=== PATIENT | female | born 1950 | race Caucasian/White ===

== ENCOUNTER → 2023-07-04 | Outpatient (CLI) | payer MEDICARE, OTHER, SELFPAY ==
--- NOTE | 2023-07-04 09:25 | RAD_ITS ---
STUDY: BARIUM ENEMA. REASON FOR EXAM: Female, 73 years old. POST RIKKI COLOGUARD FAILED COLONSCOPY FLUOROSCOPY TIME (if supplied): ( 54 seconds. ) minutes/seconds. 19 images were obtained. TECHNIQUE: Career Technical Counselor views were obtained. Following this, barium was introduced retrograde through the rectum. The entire colon was opacified. COMPARISON: None. FINDINGS: No evidence of a retrograde or antegrade obstruction to the flow of contrast. Sigmoid diverticula. No evidence of obstruction. Tiny diverticula is seen in the proximal portion of the transverse colon. The sigmoid colon is redundant. RAD/Barium Enema w/Air Contrast IMPRESSION: Diverticulum is seen in the sigmoid colon as well as in the proximal transverse colon. No evidence of obstruction. No filling defect is seen. Electronically Signed: Juan Swan MD at 10:43 EST ,
--- OUTSIDE RECORDS SUMMARY | 2023-07-04 09:50 | XMS RPT_ITS | CCD ---
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 Name Role Phone Lázaro Gamboa PA-C Primary Care Provider [phone] Lázaro GAMBOA Primary Care Unavailable Lázaro GAMBOA Primary Care Unavailable Lázaro GAMBOA Referring Unavailable GAMBOALázaro Primary Care Unavailable Lázaro GAMBOA Attending Unavailable Lázaro GAMBOA Primary Care Unavailable RAFY MARTÍNEZ Attending Unavailable Lázaro GAMBOA Primary Care Unavailable ANNA, ALEXANDRA Referring Unavailable GAMBOALázaro Primary Care Unavailable GAMBOALázaro Referring Unavailable ANNA, ALEXANDRA Attending Unavailable GAMBOA M PRETTY Primary Care Unavailable GAMBOA, Lázaro OLSEN Referring Unavailable GAMBOA, Lázaro OLSEN Primary Care Unavailable Lázaro GAMBOA Attending Unavailable Allergies Allergy Classification Reported Allergen(s) Allergy Type Date of Onset Reaction(s) Facility (10 sources) Adhesive Tape; Translations: [ADHESIVE TAPE (ROSINS)] Propensity to adverse reactions 0 [facility] Work Phone: (10 sources) atorvastatin; Translations: [ATORVASTATIN CALCIUM] Drug Allergy 2 Intolerance [facility] Work Phone: (10 sources) HYLAN G-F 20; Translations: [HYLAN G-F 20] Drug Allergy 0 [facility] (10 sources) Niacin; Translations: [NIACIN] Drug Allergy 7 Itching [facility] (5 sources) Penicillins; Translations: [PENICILLINS] Propensity to adverse reactions 6 [facility] (10 sources) rofecoxib; Translations: [ROFECOXIB] Drug Allergy 6 [facility] Work Phone: (10 sources) Sulfonamides (Antibiotic); Translations: [SULFA (SULFONAMIDE ANTIBIOTICS)] Propensity to adverse reactions 6 GI Upset [facility] (5 sources) Penicillins Propensity to adverse reactions 6 [facility] Medications Completed/Discontinued Medications Medication Drug Class(es) Dates Sig (Normalized) Sig (Original) allopurinol 300 mg oral tablet (10 sources) Xanthine Oxidase Inhibitor Start: 04-09-2021 End: 04-12-2022 take 1 tablet by mouth once daily allopurinol (ZYLOPRIM) 300 mg tablet Indications: Idiopathic chronic gout of foot without tophus, unspecified laterality Take 1 tablet by mouth once daily. 90 tablet 3 04/12/2022 Active Problems Active Problems Problem Classification Problem Date Documented Da te Episodic/Chronic Chronic kidney disease (10 sources) Chronic kidney disease stage 3; Translations: [CKD (chronic kidney disease) stage 3, GFR 30-59 ml/min] Onset: 8 05-04-2018 Chronic Chronic kidney disease (1 source) Chronic kidney disease; Translations: [Hypertensive kidney disease with stage 3b chronic kidney disease (HCC)] Onset: Disorders of lipid metabolism (14 sources) Mixed hyperlipidemia; Translations: [Mixed hyperlipidemia] Onset: 7 03-04-2009 Chronic Esophageal disorders (14 sources) Gastroesophageal reflux disease without esophagitis; Translations: [Gastro-esophageal reflux disease without esophagitis] Onset: 1 04-09-2021 Chronic Essential hypertension (14 sources) Benign essential hypertension; Translations: [Essential (primary) hypertension] Onset: 9 04-08-2009 Chronic Gout and other crystal arthropathies (15 sources) Gout; Translations: [Gout, unspecified] Onset: 1 06-01-2021 Chronic Hypertension with complications and secondary hypertension (10 sources) Chronic kidney disease stage 3 due to hypertension; Translations: [Hypertensive chronic kidney disease with stage 1 through stage 4 chronic kidney disease, or unspecified chronic kidney disease] Onset: 1 04-07-2021 Chronic Nutritional deficiencies (1 source) Vitamin D deficiency; Translations: [Vitamin D deficiency, unspecified] Chronic Osteoarthritis (9 sources) Osteoarthritis; Translations: [Osteoarthrosis, unspecified whether generalized or localized, lower leg] Onset: 9 06-01-2021 Chronic Other aftercare (1 source) Drug therapy finding; Translations: [Other terminal superintendent (current) drug therapy] Episodic Other aftercare (2 sources) Other mcc (current) drug therapy; Translations: [Current use of proton pump inhibitor] Onset: 3 Episodic Other aftercare (1 source) prison (current) use of non-steroidal anti-inflammatories (NSAID); Translations: [NSAID long-term use] Onset: 4 Episodic Other congenital anomalies (9 sources) Congenital pes planus; Translations: [Congenital pes planus, unspecified foot] Onset: 6 11-23-2005 Chronic Other diseases of bladder and urethra (3 sources) Overactive bladder; Translations: [Overactive bladder] Chronic Other diseases of bladder and urethra (1 source) Overactive bladder; Translations: [OAB (overactive bladder)] Onset: 3 Chronic Other diseases of kidney and ureters (1 source) Renal impairment; Translations: [Disorder of kidney and ureter, unspecified] Episodic Other gastrointestinal disorders (1 source) Other fecal abnormalities; Translations: [Positive colorectal cancer screening using Cologuard test] Onset: 4 Episodic Other hereditary and degenerative nervous system conditions (1 source) Other specified forms of tremor; Translations: [Intention tremor] Onset: 3 Chronic Other inflammatory condition of skin (1 source) Psoriasis vulgaris; Translations: [Psoriasis vulgaris] Onset: 3 Chronic Other nutritional; endocrine; and metabolic disorders (10 sources) Body mass index 40+ - severely obese; Translations: [Morbid (severe) obesity due to excess calories] Onset: 8 04-07-2021 Chronic Other screening for suspected conditions (not mental disorders or infectious disease) (2 sources) Patient encounter status; Translations: [Encounter for screening mammogram for malignant neoplasm of breast] Onset: 3 Episodic Residual codes; unclassified (9 sources) H/O Malignant melanoma; Translations: [Other specified postprocedural states] 04-07-2021 Episodic Unclassified (1 source) Visit for monitoring Rituxan therapy; Translations: [Visit for monitoring Rituxan therapy] Onset: Past or Other Problems Problem Classification Problem Date Documented Date Episodic/Chronic Biliary tract disease (9 sources) Calculus of gallbladder with cholecystitis; Translations: [Calculus of gallbladder with chronic cholecystitis without obstruction] Onset: 11-22-2007 11-22-2007 Episodic Diabetes mellitus without complication (20 sources) Impaired fasting glycemia; Translations: [Impaired fasting glucose] Onset: 07-10-2009 07-10-2009 Episodic Malaise and fatigue (1 source) Other fatigue; Translations: [Fatigue, unspecified type] Onset: 10-27-2022 Episodic Melanomas of skin (1 source) Personal history of malignant melanoma of skin; Translations: [History of melanoma excision] Onset: 04-07-2021 Episodic Other aftercare (1 source) Encounter for therapeutic drug level monitoring; Translations: [Visit for monitoring Rituxan therapy] Onset: 01-25-2023 Episodic Other connective tissue disease (9 sources) Tibialis tendinitis; Translations: [Posterior tibial tendinitis, unspecified leg] Onset: 11-23-2005 11-23-2005 Episodic Other connective tissue disease (9 sources) Pain in limb; Translations: [Pain in unspecified limb] Onset: 02-03-2009 02-03-2009 Episodic Other connective tissue disease (9 sources) Calcaneal spur; Translations: [Calcaneal spur, unspecified foot] Onset: 03-17-2010 03-17-2010 Episodic Residual codes; unclassified (12 sources) Other specified health status; Translations: [Other drug allergy] Onset: 04-09-2021 04-09-2021 Episodic Residual codes; unclassified (1 source) Other specified postprocedural states; Translations: [History of melanoma excision] Onset: 04-07-2021 Episodic Spondylosis; intervertebral disc disorders; other back problems (12 sources) Spinal stenosis of lumbar region; Translations: [Spinal stenosis, lumbar region without neurogenic claudication] Onset: 04-08-2009 04-08-2009 Episodic Results Test Name Value Interpretation Reference Range Facil ity Vital Signs Date Time Vital Sign Value Performing Clinician Jumana juarez 04-12-2022 09:10-0500 Body weight 119.75 kg MORTEZA Gamboa PA-C Work Phone: [facility] 04-12-2022 09:10-0500 Diastolic blood pressure 72 mm[Hg] NA Gamboa PA-C Work Phone: [facility] 04-12-2022 09:10-0500 Heart rate 76 /min NA Gamboa PA-C Work Phone: [facility] 04-12-2022 09:10-0500 Respiratory rate 16 /min NA Gamboa PA-C Work Phone: [facility] 04-12-2022 09:10-0500 SaO2% (BldA) [Mass fraction] 96 % NA Gamboa PA-C Work Phone: [facility] 04-12-2022 09:10-0500 Systolic blood pressure 128 mm[Hg] NA Gamboa PA-C Work Phone: [facility] 10-08-2021 08:59-0400 Body weight 121.11 kg NA Gamboa PA-C Work Phone: [facility] 10-08-2021 08:59-0400 Diastolic blood pressure 84 mm[Hg] NA Gamboa PA-C Work Phone: [facility] 10-08-2021 08:59-0400 Heart rate 84 /min NA Gamboa PA-C Work Phone: [facility] 10-08-2021 08:59-0400 Respiratory rate 16 /min NA Gamboa PA-C Work Phone: [facility] 10-08-2021 08:59-0400 SaO2% (BldA) [Mass fraction] 96 % NA Gamboa PA-C Work Phone: [facility] 10-08-2021 08:59-0400 Systolic blood pressure 128 mm[Hg] NA Gamboa PA-C Work Phone: [facility] Encounters Encounter Date Encounter Type Care Provider Facility Start: 06-30-2023 End: 06-30-2023 ambulatory RAFY MARTÍNEZ Facility:[facility] Start: 06-22-2023 End: 06-23-2023 ambulatory Lázaro GAMBOA Facility:[facility] Start: 05-23-2023 End: 05-23-2023 ambulatory Lázaro PRETTYCHIVO CORTESON Facility:[facility] Start: 05-06-2023 End: 05-06-2023 ambulatory Lázaro PRETTYCHIVO GAMBOA Facility:[facility] Start: 03-22-2023 End: 03-22-2023 ambulatory Lázaro PRETTYCHIVO GAMBOA Facility:[facility] Start: 01-25-2023 End: 01-26-2023 ambulatory Lázaro PRETTY GAMBOA Facility:[facility] Start: 10-27-2022 End: 10-28-2022 ambulatory Lázaro PRETTYCHIVO GAMBOA Facility:[facility] Start: 10-22-2022 End: 10-22-2022 ambulatory Lázaro GAMBOA Facility:[facility] Start: 08-22-2022 Refill Lázaro hull PA-C Work Phone: [facility] [place] Procedures Date Procedure Procedure Detail Performing Clinician Start: 05-19-2022 Mammography MORTEZA Gamboa PA-C Work Phone: Start: 05-15-2021 Mammography Jodie Met fpc [employer]PER[employer] Work Phone: Start: 04-04-2021 Adult depression scr eening assessment Jodie Bree [employer] Work Phone: Start: 05-01-2013 Colonoscopy Jodie Met fpc [employer] Work Phone: Plan of Treatment Date Care Activity Detail Author Start: 10-01-2026 LIPID SCREEN LIPID SCREEN [facility] Start: 04-14-2026 LIPID SCREEN LIPID SCREEN [facility] Start: 04-07-2025 DIABETES SCREEN DIABETES SCREEN [facility] Start: 10-01-2024 DIABETES SCREEN DIABETES SCREEN [facility] Start: 04-14-2024 DIABETES SCREEN DIABETES SCREEN [facility] Start: 05-19-2023 Mammography MAMMOGRAM [facility] Start: 05-01-2023 Colonoscopy COLONOSCOPY [facility] Start: 05-01-2023 COLORECTAL CANCER SCREENING COLORECTAL CANCER SCREENING [facility] Start: 04-12-2023 ANNUAL PCP TEAM DUST COLLECTOR ATTENDANT LU DISEASE VISIT ANNUAL PCP TEAM CHRONIC DISEASE VISIT [facility] Start: 04-12-2023 BP CONTROLLED (<130/80) BP CONTROLLE D (<130/80) [facility] Start: 04-12-2023 Urine microalbumin profile DTA P,TDAP,TD (2 - Td or Tdap) [facility] Immunizations Immunization Date Immunization Notes Care Provider Leonel doe 03-02-2022 COVID-19 booster vaccine, age 12+ yr, bivalent (PFIZER-BIONTECH) NA Gamboa PA-C Work Phone: [facility] 03-02-2022 influenza, high dose seasonal, preservative-free NA Gamboa PA-C Work Phone: [facility] 09-16-2021 COVID-19 vaccine, ag e 12+ yr (PFIZER-BIONTECH - PURPLE TOP) NA Gamboa PA-C Work Phone: [facility] 02-17-2021 influenza, high-dose , quadrivalent vaccine (FLUZONE HIGH DOSE QUADRIVALENT) Jodie Bree [employer]PER[employer] Work Phone: [facility] 08-21-2020 COVID-19 vaccine, ag e 12+ yr (PFIZER-BIONTECH - PURPLE TOP) Jodie Mansfield [employer]PER[employer] Work Phone: [facility] 07-31-2020 COVID-19 vaccine, ag e 12+ yr (PFIZER-BIONTECH - PURPLE TOP) Jodie Mansfield [employer]OSS P[employer]ER.[employer]PER[employer] Work Phone: [facility] 02-25-2020 zoster vaccine recombinant Jodie Mansfield [employer]ER.[employer]PER[employer] Work Phone: [facility] 02-13-2020 influenza, high dose seasonal, preservative-free Jodie Bree SP[employer]ER.[employer]PER[employer] Work Phone: [facility] 12-06-2019 zoster vaccine recombinant Jodie Bree [employer]ER.[employer] Work Phone: [facility] 02-18-2019 influenza, high dose seasonal, preservative-free Jodie Bree [employer]ER.[employer]PER[employer] Work Phone: [facility] 02-19-2018 influenza, high dose seasonal, preservative-free Jodie Mansfield SP[employer]ER.[employer]PER[employer] Work Phone: [facility] 02-14-2017 influenza, high dose seasonal, preservative-free Jodie Mansfield SP[employer]ER.[employer] Work Phone: [facility] Work Phone: 04-12-2016 pneumococcal conjuga te vaccine, 13 valent Jodie Bree [employer] Work Phone: [facility] Work Phone: 02-14-2016 influenza, high dose seasonal, preservative-free Jodie Mansfield SP[employer] M[employer]ER.[facility] Work Phone: [facility] Work Phone: 03-09-2015 influenza, high dose seasonal, preservative-free Jodie Mansfield SP[employer].[facility] Work Phone: [facility] 03-21-2014 influenza, seasonal, injectable Jodie Bree SP[employer] P[employer]ER.[employer]PER[employer] Work Phone: [facility] Work Phone: 03-17-2013 influenza virus vacc ine, unspecified formulation Jodie Mansfield [employer].[facility] Work Phone: [facility] 02-22-2013 pneumococcal polysaccharide vaccine, 23 valent Jodie Bree [employer]ER[employer] Work Phone: [facility] 03-25-2012 influenza virus vacc ine, unspecified formulation Jodie Mansfield [employer] Work Phone: [facility] Work Phone: 03-06-2011 influenza virus vacc ine, unspecified formulation Jodie Bree [employer] Work Phone: [facility] Work Phone: 04-11-2010 influenza virus vacc ine, unspecified formulation Jodie Mansfield [employer] Work Phone: [facility] Work Phone: 03-08-2009 influenza virus vacc ine, unspecified formulation Jodie Mansfield [employer] Work Phone: [facility] Work Phone: 03-08-2009 tetanus toxoid, redu marta diphtheria toxoid, and acellular pertussis vaccine, adsorbed Jodie Bree [employer] Work Phone: [facility] Work Phone: 01-14-2009 zoster vaccine, live Jodie M etcalf [employer] Work Phone: [facility] Work Phone: Payers Date Payer Category Payer Medicare [id number] 2020 Unknown [employer]IC[employer] SUPPLE[place] [id number] 2020-Present [phone] [id number] [place] [address] Indemnity [id number] 2020 Unknown [employer] [employer] [employer]IC[employer] SUPPLEMENT [id number] 2020-Present [phone] [address] [place] [address] Indemnity [id number] 2012 Medicare MEDICARE MEDICAR E A AND B [id number] 2012-Present [phone] [place] [address] Medicare [id number] 2012 Medicare MEDICARE MEDICAR E A AND B [id number] 2012-Present [phone] [place] [address] Medicare [id number] 2012 Medicare [id number] Social History Date Type Detail Facility Start: 01-21-2011 Tobacco smoking stat us [facility] Never smoked tobacco [facility] Start: 04-09-2021 End: 04-12-2022 Alcohol intake Current non-drinker of alcohol (finding) [facility] Start: 04-04-2021 History SDOH Alcohol Frequency 1 [facility] Start: 04-04-2021 History SDOH Social Connections Phone 5 [facility] Start: 04-04-2021 History SDOH Social Connections Get Together 4 [facility] Start: 04-04-2021 History SDOH Social Connections Yazidi 3 [facility] Start: 04-04-2021 History SDOH Social Connections Meetings 2 [facility] Start: 04-04-2021 History SDOH Physica l Activity MPS 6 [facility] Start: 1950 Sex Assigned At Not on file [facility] Start: 01-21-2011 Tobacco use and exposure Smoke less tobacco non-user [facility] Work Phone: Start: 04-02-2022 End: 04-12-2022 Exposure to SARS-CoV-2 (event) Not sure [facility] Clinical Notes 03-04-2009 to 06-22-2023 Telephone Encounter - Diaz Medellin LPN - 08/23/2022 9:44 AM EDTTelephone Encounter - Sherley Nugent MA - 04/23/2022 9:08 AM BEAU Gamboa PA-C - 04/12/2022 9:00 AM EST Note Date & Type Note Facility 06-22-2023 Note HNO ID: [id number] Author: ALEXANDRA CASTILLO PA-C Service: ? Author Type: Physician Loan Documents Closer Type: Progress Notes Filed: 06/27/2023 17:08 Note Text: golytelyHISTORY AND PHYSICAL Yojana Leon Ivelisse 1950 REFERRING PHYSICIAN: Lázaro Gamboa PA-C CHIEF COMPLAINT: Consult HPI: The patient is a 73 year old female referred for endoscopy due to positive Cologuard test. Yojana notes no colon complaints. Patient denies any change in bowel habits, weight changes, blood in stools, black tarry stools or abdominal pain. NOTES family history of colon polyps-brother. The patient NOTES GERD, is maintained on a PPI long-term for symptoms. Notes history of NSAID use. Yojana has undergone prior endoscopy. Last colonoscopy 05/01/[address] Felix under conscious sedation, no concerning findings at that time. Patient denies chest pain, shortness of breath or recent hospitalizations. Denies problems with sedation in the past. PAST MEDICAL HISTORY Diagnosis Date Benign hypertensive heart disease without heart failure Esophageal reflux Melanoma (HCC) Back. Chest. 2 different sites/ times. Excision only. Follows annually wiht Dr. Thomas. Overactive bladder Positive colorectal cancer screening using Cologuard test 05/11/2023 Pure hypercholesterolemia PAST SURGICAL HISTORY Procedure Laterality Date ARTHRP KNE CONDYLEANDPLATU MEDIALANDLAT COMPARTMENTS 06/08/10 right ARTHRP KNE CONDYLEANDPLATU MEDIALANDLAT COMPARTMENTS 07/06/2011 left COLONOSCOPY 02/11/2003 COLONOSCOPY FLX DX W/COLLJ SPEC WHEN PFRMD 05/01/2013 Colonoscopy ESOPHAGOGASTRODUODENOSCOPY TRANSORAL DIAGNOSTIC 05/02/2013 EGD LAPAROSCOPY SURG CHOLECYSTECTOMY 11/23/2007 Hemorrhagic Cholecystitis LIG/TRNSXJ FLP TUBE ABDL/VAG APPR UNI/BI PAST SURGICAL HISTORY OF MELANOMA REMOVAL PAST SURGICAL HISTORY OF KNEE SURGERY right - arthroscopy X 2 TOTAL ABDOMINAL HYSTERECT W/WO RMVL TUBE OVARY 05/31/1991 Current Outpatient Medications Medication Sig lisinopril (ZESTRIL) 40 mg tablet Take 1 tablet by mouth once daily. rosuvastatin (CRESTOR) 5 mg tablet Take 1 tablet by mouth daily at bedtime. fluticasone propionate (FLOVENT DISKUS) 250 mcg/actuation inhaler Inhale 1 Puff as instructed once daily. metoprolol tartrate, short acting, (LOPRESSOR) 50 mg tablet Take 0.5 tablets by mouth twice daily. allopurinol (ZYLOPRIM) 300 mg tablet Take 1 tablet by mouth once daily. fenofibrate nanocrystallized (TRICOR) 145 mg tablet Take 1 tablet by mouth once daily. lansoprazole (PREVACID) 30 mg capsule Take 1 capsule by mouth once daily. oxybutynin XL (DITROPAN XL) 5 mg 24 hr tablet Take 1 tablet by mouth once daily. nitrofurantoin monohydrate and macrocrystal (MACROBID) 100 mg capsule Take 1 capsule by mouth as needed. take one capsule after coitus as needed. Azelastine 0.15 % (205.5 mcg) spry Use in each nostril once daily. levocetirizine dihydrochloride(XYZAL 5 MG TAB) Take 5 mg by mouth once daily. FLONASE 50 MCG/ACTUATION NASAL SPRAY AEROSOL ONCE AT NIGHT empagliflozin (JARDIANCE) 10 mg tablet Take 1 tablet by mouth once daily. Take 1 tablet once daily in the morning betamethasone dipropionate, augmented (DIPROLENE) 0.05 % cream Apply to the affected areas on the scalp, arms and legs twice a day for two weeks on. then take 2 weeks off before repeating as needed for flares (Patient not taking: Reported on 06/22/2023) triamcinolone acetonide (KENALOG) 0.1 % cream Apply a thin layer to the abdomen and under the breasts once a day at night for 2 weeks. Hold for 2 weeks before repeating for any flares. (Patient not taking: Reported on 06/22/2023) ibuprofen(ADVIL 200 MG TAB) three pills in the morning and one pill at night and then as needed No current facility-administered medications for this visit. ALLERGIES: Adhesive Tape (Rosins), Lipitor [Atorvastatin Calcium], Niacin, Penicillins, Sulfa (Sulfonamide Antibiotics), Synvisc [Hylan G-F 20], and Vioxx [Rofecoxib] PERSONAL HISTORY: Social History Tobacco Use Smoking status: Never Smokeless tobacco: Never Vaping Use Vaping Use: Never used Substance Use Topics Alcohol use: Not Currently Drug use: Never FAMILY HISTORY: FAMILY HISTORY Problem Relation Age of Onset Cancer Mother CERVICAL Hypertension Mother Cancer Father LUNG Hypertension Brother Diabetes Brother Diabetes Maternal Grandmother No Known Problems Maternal Grandfather No Known Problems Paternal Grandmother No Known Problems Paternal Grandfather No Known Problems Son No Known Problems Son Cancer Maternal Aunt ovarian REVIEW OF SYMPTOMS: The review of systems data was entered by the nurse and reviewed by nv Nursing Notes: Shayna Christie LPN 06/22/2023 3:54 PM Signed REVIEW OF SYSTEMS: General: The patient denies fatigue, denies weight loss, denies weight gain, denies feeling hot, and denies feelings of cold. Eyes: The patient denies glaucoma, denies eye injury/surge (more content not included)... [facility] 05-23-2023 Note HNO ID: [id number] Author: Magdalene Baker Mammo Tech Service: ? Author Type: Forger Helper Type: Progress Notes Filed: 05/23/2023 1:49 PM Note Text: Radiology Service Progress Note PATIENT NAME: Yojana Johnson DATE OF SERVICE: May 23, 2023 TIME: 1:30 PM PATIENT IDENTITY VERIFICATION COMPLETED USING TWO (2) IDENTIFIERS: Name and Date of confirmed by patient verbally. FALL SCREENING: Has the patient had 2 falls in the last year or 1 fall with injury or currently using an Ambulatory Assistive Device (Walker, Cane, Wheelchair, Crutches, etc.)? No PATIENT GENDER DATA: Female. status: : No status: NO. PATIENT RELEVANT IMPLANT DATA REVIEWED: Not Applicable RADIOLOGY DEPARTMENT: Mammography PERIPHERAL IV DATA: Not applicable SIGNED BY: Pietro Dominguez May 23, 2023 1:30 PM [facility] 05-06-2023 Note HNO ID: [id number] Author: Lázaro Gamboa PA-C Service: ? Author Type: Physician Loan Documents Closer Type: Progress Notes Filed: 05/07/2023 7:32 AM Note Text: 73 year old female with c/o here for 6 month medication follow up Notes chronic nasal congestion over last few months, allergy to leaf mold and trees Not dripping, uses simple saline and sometimes green/ bloody chunks. On [place] and Essential hypertension, benign (primary encounter diagnosis) Hypertensive kidney disease with stage 3b chronic kidney disease (hcc) Current meds: Lisinopril-HCTZ 20-25mg daily Patient is compliant with meds Yes Monitors bp at home: No. If yes, readings: Denies side effects: No. Chest pain: No. Dyspnea: No. Edema: No. Palpitations: No. Syncope: No. Headache: No. Dizziness: No. Last 3 Encounter BP Readings: Date: BP: 05/06/2023 130/72 03/22/2023 151/82 10/22/2022 126/72 Last 2 Encounter Wt Readings: Date: Wt: 05/06/2023 116.6 kg (257 lb) 03/22/2023 117 kg (258 lb) Component Latest Ref Rng AND Units 10/27/2022 01/25/2023 WBC 3.70 - 11.00 k/uL 5.72 5.85 RBC 3.90 - 5.20 m/uL 4.60 4.49 Hemoglobin 11.5 - 15.5 g/dL 13.7 13.6 Hematocrit 36.0 - 46.0 % 43.3 42.1 MCV 80.0 - 100.0 fL 94.1 93.8 MCH 26.0 - 34.0 pg 29.8 30.3 MCHC 30.5 - 36.0 g/dL 31.6 32.3 RDW-CV 11.5 - 15.0 % 14.2 14.5 Platelet Count 150 - 400 k/uL 203 216 MPV 9.0 - 12.7 fL 12.2 12.0 Neut% % 58.9 Abs Neut (ANC) 1.45 - 7.50 k/uL 3.45 Lymph% % 29.1 Abs Lymph 1.00 - 4.00 k/uL 1.70 Guthrie% % 6.2 Abs Guthrie <0.87 k/uL 0.36 Eosin% % 4.8 Abs Eosin <0.46 k/uL 0.28 Baso% % 0.7 Abs Baso <0.11 k/uL 0.04 Immature Gran % % 0.3 IMMATURE GRANS (ABS) <0.10 k/uL <0.03 NRBC /100 WBC 0.0 Absolute nRBC <0.01 k/uL <0.01 <0.01 DTYPE Auto Protein, Total 6.3 - 8.0 g/dL 7.3 Albumin 3.9 - 4.9 g/dL 4.5 Calcium 8.5 - 10.2 mg/dL 10.1 10.1 Bilirubin, Total 0.2 - 1.3 mg/dL 0.4 Alkaline Phosphatase 34 - 123 U/L 42 AST 13 - 35 U/L 25 ALT 7 - 38 U/L 20 Glucose 74 - 99 mg/dL 108 (H) 94 BUN 7 - 21 mg/dL 48 (H) 34 (H) Creatinine 0.58 - 0.96 mg/dL 1.46 (H) 1.40 (H) Sodium 136 - 144 mmol/L 143 141 Potassium 3.7 - 5.1 mmol/L 4.3 4.7 Chloride 97 - 105 mmol/L 107 (H) 107 (H) CO2 22 - 30 mmol/L 22 22 Anion Gap 9 - 18 mmol/L 14 12 eGFR >=60 mL/min/1.73mA? 38 (L) 39 (L) Mixed hyperlipidemia Statin intolerance Current medication Fenofibrate 145mg daily Taking medication consistently No Observing low cholesterol high fiber diet No Muscle aches No Stomach complaints/ diarrhea No Last 2 Lipids: Component Latest Ref Rng AND Units 10/01/2021 10/27/2022 Cholesterol, Total <200 mg/dL 216 (H) 189 Triglyceride <150 mg/dL 311 (H) 243 (H) HDL Cholesterol >39 mg/dL 36 (L) 35 (L) Non HDL Cholesterol <130 mg/dL 180 (H) 154 (H) Fasting Time hrs 12 14 VLDL Cholesterol <30 mg/dL 62 (H) 49 (H) TC:HDL Ratio <5.10 6.00 (H) 5.40 (H) LDL Cholesterol <100 mg/dL 118 (H) 105 (H) LDL:HDL Ratio <2.54 3.28 (H) 3.00 (H) The 10-year ASCVD risk score (Obdulia HOOVER, et al., 2019) is: 27.8% Values used to calculate the score: Age: 73 years Sex: Female Is Non- : No Diabetic: No Tobacco smoker: No Systolic Blood Pressure: 151 mmHg Is BP treated: Yes HDL Cholesterol: 35 mg/dL Total Cholesterol: 189 mg/dL Prediabetes Hemoglobin A1C (%) Date Value 10/27/2022 5.9 04/07/2022 5.9 04/14/2021 5.9 01/09/2019 5.7 ) Gerd without esophagitis Current medication: Lansoprazole 30 mg daily 30 minutes AC. Current symptoms: none. Last Mg level if on PPI chronically: 04/07/2022 1.7. Heartburn is controlled: Yes. Dysphagia: No. Bloody or black stools: No. Bowel changes: No. Last EGD and/or colonoscopy: Last EGD and/or colonoscopy: Both in 2012. EGD: mild erythema GEJ otherwise normal esophagus, small hiatal hernia, single small sessile poly excised, mild gastric antral erythema Colonoscopy: non-bleeding internal and external hemorrhoids, sigmoid diverticulosis, otherwise WNL Path: Cardia polyp, biopsy - Focal foveolar hyperplasia. - Adenomatous epithelium not identified. Gout, unspecified cause, unspecified chronicity, unspecified site Spinal stenosis of lumbar region with neurogenic claudication Current medications: Allopurinol 300 g daily Aches and pains with age, all over for years. Takes 5 ibuprofen a day which seems to help. Describes it as a dull ache throughout the day and reports exercise helps some. Still able to perform ADLs and whatever she needs to do History of melanoma excision Last visit red silvery scaled spots on arms and legs Went to [facility] had creams, two injections tremfeya 100mg/mL weekly x 2 from samples and rash resolved. Betamethasone dipropionate augmented 0.05% sparingly affected areas twice a day after 2 weeks and then 2 weeks off. Asthma Flovent diskus 250mcg/actuation 1 puff daily from allergy doctor. Uses routinely. No issues wi (more content not included)... [facility] 03-22-2023 Note HNO ID: [id number] Author: Adelaida Nina PA-C Service: ? Author Type: Physician Loan Documents Closer Type: Progress Notes Filed: 03/22/2023 12:09 PM Note Text: This note was created using [employer]. Subjective Yojana Johnson is a 73 year old female. HPI Patient presents with sinus pressure and congestion over the past week. She states she had allergy symptoms for about a month leading up to this past week and then her sinus pressure worsened and drainage thicker. She states she is also had a cough but thinks it is from a tickle in her throat. Denies chest pain or shortness of breath. No vomiting or diarrhea. She has tried Mucinex [id number] which seemed to help with the congestion however upset her stomach so did not continue it. She does take Flonase daily as well as Xyzal for allergies. She also had a leftover prescription for Macrobid so took that for 5 days. Review of Systems Constitutional: Negative. HENT: Positive for congestion, ear pain, postnasal drip, rhinorrhea, sinus pressure and sinus pain. Negative for sore throat. Respiratory: Positive for cough. Negative for chest tightness, shortness of breath and wheezing. Cardiovascular: Negative. Gastrointestinal: Negative. Genitourinary: Negative. Musculoskeletal: Negative. Skin: Negative. All other systems reviewed and are negative. PAST MEDICAL HISTORY Diagnosis Date Benign hypertensive heart disease without heart failure Esophageal reflux Melanoma (HCC) Back. Chest. 2 different sites/ times. Excision only. Follows annually wiht Dr. Thomas. Overactive bladder Pure hypercholesterolemia Current Outpatient Medications Medication Sig Dispense Refill betamethasone dipropionate, augmented (DIPROLENE) 0.05 % cream Apply to the affected areas on the scalp, arms and legs twice a day for two weeks on. then take 2 weeks off before repeating as needed for flares doxycycline monohydrate (MONODOX) 100 mg capsule Take 1 capsule twice a day for 14 days with food triamcinolone acetonide (KENALOG) 0.1 % cream Apply a thin layer to the abdomen and under the breasts once a day at night for 2 weeks. Hold for 2 weeks before repeating for any flares. fluticasone propionate (FLOVENT DISKUS) 250 mcg/actuation inhaler Inhale 1 Puff as instructed once daily. metoprolol tartrate, short acting, (LOPRESSOR) 50 mg tablet Take 0.5 tablets by mouth twice daily. 90 tablet 3 allopurinol (ZYLOPRIM) 300 mg tablet Take 1 tablet by mouth once daily. 90 tablet 3 lisinopril-hydroCHLOROthiazide (ZESTORETIC) 20-25 mg per tablet Take 1 tablet by mouth once daily. 90 tablet 3 fenofibrate nanocrystallized (TRICOR) 145 mg tablet Take 1 tablet by mouth once daily. 90 tablet 3 lansoprazole (PREVACID) 30 mg capsule Take 1 capsule by mouth once daily. 90 capsule 3 oxybutynin XL (DITROPAN XL) 5 mg 24 hr tablet Take 1 tablet by mouth once daily. 90 tablet 3 nitrofurantoin monohydrate and macrocrystal (MACROBID) 100 mg capsule Take 1 capsule by mouth as needed. take one capsule after coitus as needed. 30 capsule 2 Azelastine 0.15 % (205.5 mcg) spry ibuprofen(ADVIL 200 MG TAB) three pills in the morning and one pill at night and then as needed 0 levocetirizine dihydrochloride(XYZAL 5 MG TAB) 0 FLONASE 50 MCG/ACTUATION NASAL SPRAY AEROSOL ONCE AT NIGHT 0 doxycycline (VIBRA-TABS) 100 mg tablet Take 1 tablet by mouth two times a day for 7 days. 14 tablet 0 predniSONE (DELTASONE) 20 mg tablet Take 2 tablets by mouth once daily for 5 days. 10 tablet 0 No current facility-administered medications for this visit. PAST SURGICAL HISTORY Procedure Laterality Date ARTHRP KNE CONDYLEANDPLATU MEDIALANDLAT COMPARTMENTS 06/08/10 right ARTHRP KNE CONDYLEANDPLATU MEDIALANDLAT COMPARTMENTS 07/06/2011 left COLONOSCOPY 02/11/2003 COLONOSCOPY FLX DX W/COLLJ SPEC WHEN PFRMD 05/01/2013 Colonoscopy ESOPHAGOGASTRODUODENOSCOPY TRANSORAL DIAGNOSTIC 05/02/2013 EGD LAPAROSCOPY SURG CHOLECYSTECTOMY 11/23/2007 Hemorrhagic Cholecystitis LIG/TRNSXJ FLP TUBE ABDL/VAG APPR UNI/BI PAST SURGICAL HISTORY OF MELANOMA REMOVAL PAST SURGICAL HISTORY OF KNEE SURGERY right - arthroscopy X 2 TOTAL ABDOMINAL HYSTERECT W/WO RMVL TUBE OVARY 05/31/1991 FAMILY HISTORY Problem Relation Age of Onset Cancer Mother CERVICAL Hypertension Mother Cancer Father LUNG Hypertension Brother Diabetes Brother Diabetes Maternal Grandmother Cancer Maternal Aunt ovarian Social History Tobacco Use Smoking status: Never Smokeless tobacco: Never Vaping Use Vaping Use: Never used Substance Use Topics Alcohol use: No Drug use: No Objective BP 151/82 Pulse 66 Temp 36.5 ?C (97.7 ?F) Resp 20 Wt 117 kg (258 lb) SpO2 98% BMI 39.81 kg/m? Physical Exam Vitals reviewed. Constitutional: Appearance: Normal appearance. HENT: Head: Normocephalic and atraumatic. Cardiovascular: Rate and Rhythm: Normal rate and regular rhythm. H (more content not included)... [facility] 10-22-2022 Note HNO ID: [id number] Author: Lázaro Gamboa PA-C Service: ? Author Type: Physician Loan Documents Closer Type: Progress Notes Filed: 10/22/2022 12:23 PM Note Text: 72 year old female with c/o 6 month f/u Has spots on arms and legs with are red, some with silvery scale, bx pending on skin. seeing Dr. Pedersen: doing genetic testing for prostate cancer screening. From last visit: Aches and pains with age, all over for years. Takes 5 ibuprofen a day which seems to help. Describes it as a dull ache throughout the day and reports exercise helps some. Still able to perform ADLs and whatever she needs to do. Essential hypertension, benign (primary encounter diagnosis) Current meds: Lisinopril-HCTZ 20-25mg daily Patient is compliant with meds Yes Monitors bp at home: No. If yes, readings: Denies side effects: No. Chest pain: No. Dyspnea: No. Edema: No. Palpitations: No. Syncope: No. Headache: No. Dizziness: No. Last 3 Encounter BP Readings: Date: BP: 10/22/2022 126/72 04/12/2022 128/72 10/08/2021 128/84 Last 2 Encounter Wt Readings: Date: Wt: 10/22/2022 117.9 kg (260 lb) 04/12/2022 119.7 kg (264 lb) Mixed hyperlipidemia Statin intolerance Current medication Fenofibrate 145mg daily Taking medication consistently Yes Observing low cholesterol high fiber diet Yes Muscle aches Yes Stomach complaints/ diarrhea No Last 2 Lipids: Component Latest Ref Rng AND Units 04/14/2021 10/01/2021 Cholesterol, Total <200 mg/dL 195 216 (H) Triglyceride <150 mg/dL 231 (H) 311 (H) HDL Cholesterol >39 mg/dL 32 (L) 36 (L) LDL Cholesterol <100 mg/dL 117 (H) 118 (H) Non HDL Cholesterol <130 mg/dL 163 (H) 180 (H) Fasting Time hrs 12 12 VLDL Cholesterol <30 mg/dL 46 (H) 62 (H) TC:HDL Ratio <5.10 6.09 (H) 6.00 (H) LDL:HDL Ratio <2.54 3.66 (H) 3.28 (H) Component Latest Ref Rng AND Units 04/14/2021 10/01/2021 Protein, Total 6.3 - 8.0 g/dL 7.2 7.7 Albumin 3.9 - 4.9 g/dL 4.6 4.8 Calcium 8.5 - 10.2 mg/dL 9.8 10.5 (H) Bilirubin, Total 0.2 - 1.3 mg/dL 0.5 0.4 Alkaline Phosphatase 34 - 123 U/L 46 51 AST 13 - 35 U/L 25 20 Glucose 74 - 99 mg/dL 109 (H) 117 (H) BUN 7 - 21 mg/dL 42 (H) 45 (H) Creatinine 0.58 - 0.96 mg/dL 1.41 (H) 1.38 (H) Sodium 136 - 144 mmol/L 142 144 Potassium 3.7 - 5.1 mmol/L 4.5 4.5 Chloride 97 - 105 mmol/L 106 (H) 104 CO2 22 - 30 mmol/L 24 25 Anion Gap 9 - 18 mmol/L 12 15 ALT 7 - 38 U/L 23 18 eGFR- 44 eGFR-All Other Races . 37 eGFR >=60 mL/min/1.73mA? 40 (L) Impaired fasting glucose 5.9 (04/07/2022) Stage 3b chronic kidney disease (hcc) Lab as above Gerd without esophagitis Current medication: Lansoprazole 30mg daily AC. Current symptoms: Well tolerated with medication. Last Mg level if on PPI chronically: 1.7. Heartburn is controlled: Yes. Dysphagia: No. Bloody or black stools: No. Bowel changes: No. Last EGD and/or colonoscopy: Both in 2012. EGD: mild erythema GEJ otherwise normal esophagus, small hiatal hernia, single small sessile poly excised, mild gastric antral erythema Colonoscopy: non-bleeding internal and external hemorrhoids, sigmoid diverticulosis, otherwise WNL Path: Cardia polyp, biopsy - Focal foveolar hyperplasia. - Adenomatous epithelium not identified. Gout, unspecified cause, unspecified chronicity, unspecified site Current medications: Allopurinol 300mg daily, no recent flares No recurrence in a long time. Morbid obesity with bmi of 40.0-44.9, adult (hcc) Spinal stenosis of lumbar region with neurogenic claudication Current medications: Ibuprofen 600mg a.m., 200mg p.m. and prn HISTORIES FAMILY HISTORY Problem Relation Age of Onset Cancer Mother CERVICAL Hypertension Mother Cancer Father LUNG Hypertension Brother Diabetes Brother Diabetes Maternal Grandmother Cancer Maternal Aunt ovarian PAST MEDICAL HISTORY Diagnosis Date Benign hypertensive heart disease without heart failure Esophageal reflux Melanoma (HCC) Back. Chest. 2 different sites/ times. Excision only. Follows annually andrzej Thomas. Overactive bladder Pure hypercholesterolemia PAST SURGICAL HISTORY Procedure Laterality Date ARTHRP KNE CONDYLEANDPLATU MEDIALANDLAT COMPARTMENTS 06/08/10 right ARTHRP KNE CONDYLEANDPLATU MEDIALANDLAT COMPARTMENTS 07/06/2011 left COLONOSCOPY 02/11/2003 COLONOSCOPY FLX DX W/COLLJ SPEC WHEN PFRMD 05/01/2013 Colonoscopy ESOPHAGOGASTRODUODENOSCOPY TRANSORAL DIAGNOSTIC 05/02/2013 EGD LAPAROSCOPY SURG CHOLECYSTECTOMY 11/23/2007 Hemorrhagic Cholecystitis LIG/TRNSXJ FLP TUBE ABDL/VAG APPR UNI/BI PAST SURGICAL HISTORY OF MELANOMA REMOVAL PAST SURGICAL HISTORY OF KNEE SURGERY right - arthroscopy X 2 TOTAL ABDOMINAL HYSTERECT W/WO RMVL TUBE OVARY 05/31/1991 Social History Tobacco Use Smoking status: Never Smokeless tobacco: Never Vaping Use Vaping Use: Never used Substance Use Topics Alcohol use: No Drug use: No ACTIVE PRO (more content not included)... [facility] 08-23-2022 Miscellaneous Notes Patient phones requesting refills as follows: Requested Prescriptions Pending Prescriptions Disp Refills metoprolol tartrate, short acting, (LOPRESSOR) 50 mg tablet 30 tablet 2 Sig: Take 0.5 tablets by mouth twice daily. XIOMY 04/12/22 NOV 10/22/22 Please review and advise. Diaz Medellin LPN documented in this encounter [facility] 04-23-2022 Miscellaneous Notes Patient notified via [facility] message from provider. Sherley Nugent MA Telephone on 04/23/22 BIBIANA SCREENING [employer] PA-C documented in this encounter [facility] 04-12-2022 History of Present illness Narrative 72 year old female presenting for follow-up. Aches and pains with age, all over for years. Takes 5 ibuprofen a day which seems to help. Describes it as a dull ache throughout the day and reports exercise helps some. Still able to perform ADLs and whatever she needs to do. Essential hypertension, benign (primary encounter diagnosis) Current meds: Lisinopril-HCTZ 20-25mg daily Patient is compliant with meds Yes Monitors bp at home: No. If yes, readings: Denies side effects: No. Chest pain: No. Dyspnea: No. Edema: No. Palpitations: No. Syncope: No. Headache: No. Dizziness: No. Last 3 Encounter BP Readings: Date: BP: 10/08/2021 128/84 04/09/2021 136/74 12/05/2020 132/72 Last 2 Encounter Wt Readings: Date: Wt: 10/08/2021 121.1 kg (267 lb) 04/09/2021 121.6 kg (268 lb) Mixed hyperlipidemia Statin intolerance Current medication Fenofibrate 145mg daily Taking medication consistently Yes Observing low cholesterol high fiber diet Yes Muscle aches Yes Stomach complaints/ diarrhea No Last 2 Lipids: Component Latest Ref Rng & Units 04/14/2021 10/01/2021 Cholesterol, Total <200 mg/dL 195 216 (H) Triglyceride <150 mg/dL 231 (H) 311 (H) HDL Cholesterol >39 mg/dL 32 (L) 36 (L) LDL Cholesterol <100 mg/dL 117 (H) 118 (H) Non HDL Cholesterol <130 mg/dL 163 (H) 180 (H) Fasting Time hrs 12 12 VLDL Cholesterol <30 mg/dL 46 (H) 62 (H) TC:HDL Ratio <5.10 6.09 (H) 6.00 (H) LDL:HDL Ratio <2.54 3.66 (H) 3.28 (H) Component Latest Ref Rng & Units 04/14/2021 10/01/2021 Protein, Total 6.3 - 8.0 g/dL 7.2 7.7 Albumin 3.9 - 4.9 g/dL 4.6 4.8 Calcium 8.5 - 10.2 mg/dL 9.8 10.5 (H) Bilirubin, Total 0.2 - 1.3 mg/dL 0.5 0.4 Alkaline Phosphatase 34 - 123 U/L 46 51 AST 13 - 35 U/L 25 20 Glucose 74 - 99 mg/dL 109 (H) 117 (H) BUN 7 - 21 mg/dL 42 (H) 45 (H) Creatinine 0.58 - 0.96 mg/dL 1.41 (H) 1.38 (H) Sodium 136 - 144 mmol/L 142 144 Potassium 3.7 - 5.1 mmol/L 4.5 4.5 Chloride 97 - 105 mmol/L 106 (H) 104 CO2 22 - 30 mmol/L 24 25 Anion Gap 9 - 18 mmol/L 12 15 ALT 7 - 38 U/L 23 18 eGFR- 44 eGFR-All Other Races . 37 eGFR >=60 mL/min/1.73m 40 (L) Impaired fasting glucose Hemoglobin A1C (%) Date Value 04/07/2022 5.9 10/01/2021 5.9 04/14/2021 5.9 01/09/2019 5.7 ) Stage 3b chronic kidney disease (hcc) Gerd without esophagitis Current medication: Lansoprazole 30mg daily AC. Current symptoms: Well tolerated with medication. Last Mg level if on PPI chronically: 1.7. Heartburn is controlled: Yes. Dysphagia: No. Bloody or black stools: No. Bowel changes: No. Last EGD and/or colonoscopy: Both in 2012. Gout, unspecified cause, unspecified chronicity, unspecified site Current medications: Allopurinol 300mg daily, no recent flares No recurrence in a long time. Morbid obesity with bmi of 40.0-44.9, adult ([facility]) Vitals 04/09/2021 10/08/2021 04/12/2022 WEIGHT in POUNDS 268 lb 267 lb 264 lb WEIGHT in KILOGRAMS 121.564 kg 121.11 kg 119.75 kg HEIGHT in INCHES Spinal stenosis of lumbar region with neurogenic claudication Current medications: Ibuprofen 600mg a.m., 200mg p.m. and prn HISTORIES FAMILY HISTORY Problem Relation Age of Onset Cancer Mother CERVICAL Hypertension Mother Cancer Father LUNG Hypertension Brother Diabetes Brother Diabetes Maternal Grandmother Cancer Maternal Aunt ovarian PAST MEDICAL HISTORY Diagnosis Date Benign hypertensive heart disease without heart failure Esophageal reflux Melanoma (HCC) Back. Chest. 2 different sites/ times. Excision only. Follows annually wiht Dr. Thomas. Overactive bladder Pure hypercholesterolemia PAST SURGICAL HISTORY Procedure Laterality Date ARTHRP KNE CONDYLE&PLATU MEDIAL&LAT COMPARTMENTS 06/08/10 right ARTHRP KNE CONDYLE&PLATU MEDIAL&LAT COMPARTMENTS 07/06/2011 left COLONOSCOPY 02/11/2003 COLONOSCOPY FLX DX W/COLLJ SPEC WHEN PFRMD 05/01/2013 Colonoscopy ESOPHAGOGASTRODUODENOSCOPY TRANSORAL DIAGNOSTIC 05/02/2013 EGD LAPAROSCOPY SURG CHOLECYSTECTOMY 11/23/2007 Hemorrhagic Cholecystitis LIG/TRNSXJ FLP TUBE ABDL/VAG APPR UNI/BI PAST SURGICAL HISTORY OF MELANOMA REMOVAL PAST SURGICAL HISTORY OF KNEE SURGERY right - arthroscopy X 2 TOTAL ABDOMINAL HYSTERECT W/WO RMVL TUBE OVARY 05/31/1991 Social History Tobacco Use Smoking status: Never Smokeless tobacco: Never Vaping Use Vaping Use: Never used Substance Use Topics Alcohol use: No Drug use: No ACTIVE PROBLEM LIST Congenital Pes Planus Tibialis Tendinitis Mixed Hyperlipidemia Calculus of Gallbladder With Other Cholecystitis, Without Mention of Obstruction Osteoarthrosis, Unspecified Whether Generalized Or Localized, Lower Leg Essential Hypertension, Benign Pain in Limb Spinal Stenosis, Lumbar Impaired Fasting Glucose Calcaneal Spur Gout Prediabetes History of Melanoma Excision Morbid Obesity With Bmi of 40.0-44.9, Adult ([facility]) Ckd (Chronic Kidney Disease) Stage 3, Gfr 30-59 Ml/Min ([facility]) Hypertensive Kidney Disease With Chronic Kidney Disease Stage Iii ([facility]) Statin Intolerance Gerd Without Esophagitis Current Outpatient Medications Medication Sig Dispense Refill lisinopril-hydroCHLOROthiazide (PRINZIDE, ZESTORETIC) 20-25 mg per tablet Take 1 tablet by mouth once daily. 90 tablet 1 fenofibrate nanocrystallized (TRICOR) 145 mg tablet Take 1 tablet by mouth once daily. 90 tablet 1 lansoprazole (PREVACID) 30 mg capsule Take 1 capsule by mouth once daily. 90 capsule 1 oxybutynin XL (DITROPAN XL) 5 mg 24 hr tablet Take 1 tablet by mouth once daily. 90 tablet 1 allopurinol (ZYLOPRIM) 300 mg tablet Take 1 tablet by mouth once daily. 90 tablet 3 nitrofurantoin monohydrate and macrocrystal (MACROBID) 100 mg capsule Take 1 capsule by mouth as needed. take one capsule after coitus as needed. 30 capsule 2 PULMICORT FLEXHALER 180 mcg/actuation aepb Azelastine 0.15 % (205.5 mcg) spry ibuprofen(ADVIL 200 MG TAB) three pills in the morning and one pill at night and then as needed 0 levocetirizine dihydrochloride(XYZAL 5 MG TAB) 0 FLONASE 50 MCG/ACTUATION NASAL SPRAY AEROSOL ONCE AT NIGHT 0 No current facility-administered medications for this visit. BP CONTROLLED (<130/80) Never done DTAP,TDAP,TD(2 - Td or Tdap) due on 03/08/2019 DEPRESSION ASSESSMENT Never done HEMOGLOBIN/HEMATOCRIT due on 10/14/2021 COVID-19 VACCINE(5 - Booster for Pfizer series) due on 11/11/2021 INFLUENZA(1) due on 02/04/2022 MAMMOGRAM due on 05/15/2022 EXAM: BP 128/72 Pulse 76 Resp 16 Wt 119.7 kg (264 lb) SpO2 96% BMI 40.74 kg/m Pleasant obese adult woman in no acute distress. Alert and oriented all spheres. Normal affect and cognition. Speech normal. No deficits to learning or comprehension. Skin warm, dry, pink to lips and nailbeds. Normal turgor. Respirations regular and unlabored. HEENT: NCAT. No scleral icterus or conjunctival injection. TM's clear. Nose and oropharynx free from injection or lesion. Oral membranes moist and pink. No cervical lymph nodes. Thyroid non-tender, no masses, or enlargement. Carotids pulses 2+/4+ without bruits. No JVD with HOB at 30 degrees. Chest is normal shape. Lungs are clear to all flowers with good air exchange through out. HRRR without murmur or gallop. No lifts, heaves, or rubs. Extrem: no clubbing or cyanosis. Edema: none. Extremities are warm and pink with prompt capillary refill. ASSESSMENT/PLAN: 1. Essential hypertension, benign - ICD9: 401.1, ICD10: I10 (primary diagnosis) - good control - Continue current medication(s) - Recommended regular aerobic exercise. - Recommend home blood pressure monitoring, to bring results in on next visit - Goal of BP <130/80 2. Mixed hyperlipidemia - ICD9: 272.2, ICD10: E78.2 - good control - Encouraged following a low fat, low cholesterol diet. - Discussed the benefits of regular aerobic exercise and weight loss. 3. Statin intolerance - ICD9: 995.27, ICD10: Z78.9 4. Impaired fasting glucose - ICD9: 790.21, ICD10: R73.01 stable 5. Stage 3b chronic kidney disease (HCC) - ICD9: 585.3, ICD10: N18.32 - eGFR: Stable - Counseled on avoiding regular use of NSAIDs, adequate hydration, potential risk of IV dye: takesMotrin intermittently as above. 6. GERD without esophagitis - ICD9: 530.81, ICD10: K21.9 - Discussed lifestyle modifications including losing weight, limiting caffeine, no meals three hours before sleep, and head of bed elevation 7. Gout, unspecified cause, unspecified chronicity, unspecified site - ICD9: 274.9, ICD10: M10.9 No recent recurrence 8. Morbid obesity with BMI of 40.0-44.9, adult (HCC) - ICD9: 278.01, V85.41, ICD10: E66.01, Z68.41 Stable - Behavioral intervention 9. Spinal stenosis of lumbar region with neurogenic claudication - ICD9: 724.03, ICD10: M48.062 Chronic, manages with OTC Motrin: cautioned on side effect senior care. - ALLOPURINOL 300 MG TABLET F/u 6 months and as needed Lázaro Gamboa PA-C documented in this encounter [facility] 04-06-2022 Miscellaneous Notes Micheline from [facility] calling for refills. XIOMY: 10/08/21 NOV: 04/12/22 Last Refill: 10/08/21 #90 1 refill all 3 meds Jena Isaac LPN documented in this encounter [facility] 03-12-2022 Miscellaneous Notes Patient has been identified by name and date of : Yes Pharmacy phones for refill(s): Requested Prescriptions Pending Prescriptions Disp Refills oxybutynin XL (DITROPAN XL) 5 mg 24 hr tablet 90 tablet 1 Sig: Take 1 tablet by mouth once daily. Date of last office visit in primary care: 10/08/21, NOV: 04/12/22 Last 2 Encounter Wt Readings: Date: Wt: 10/08/2021 121.1 kg (267 lb) 04/09/2021 121.6 kg (268 lb) Please advise. Thank you. Becky Rivera RN documented in this encounter [facility] 10-08-2021 Instructions Lázaro Gamboa PA-C - 10/08/2021 9:40 AM EDT Vit 2000u daily documented in this encounter [facility] 10-08-2021 History of Present illness Narrative 71 year old female with c/o here for followup Essential hypertension, benign (primary encounter diagnosis) Current meds: Lisinopril-HCTZ 20-25mg daily Patient is compliant with meds Yes Monitors bp at home: Yes. If yes, readings: Denies side effects: Yes. Chest pain: No. Dyspnea: No. Edema: No. Palpitations: No. Syncope: No. Headache: No. Dizziness: No. Has had vertigo intermittently: uses [facility] Last 3 Encounter BP Readings: Date: BP: 04/09/2021 136/74 12/05/2020 132/72 10/06/2020 130/72 Last 2 Encounter Wt Readings: Date: Wt: 04/09/2021 121.6 kg (268 lb) 12/05/2020 120.7 kg (266 lb) Mixed hyperlipidemia Statin intolerance Current medication Fenofibrate 145mg daily Taking medication consistently Yes Observing low cholesterol high fiber diet Yes Muscle aches No Stomach complaints/ diarrhea No Last 2 Lipids: Component Latest Ref Rng & Units 04/14/2021 10/01/2021 Protein, Total 6.3 - 8.0 g/dL 7.2 7.7 Albumin 3.9 - 4.9 g/dL 4.6 4.8 Calcium 8.5 - 10.2 mg/dL 9.8 10.5 (H) Bilirubin, Total 0.2 - 1.3 mg/dL 0.5 0.4 Alkaline Phosphatase 34 - 123 U/L 46 51 AST 13 - 35 U/L 25 20 Glucose 74 - 99 mg/dL 109 (H) 117 (H) BUN 7 - 21 mg/dL 42 (H) 45 (H) Creatinine 0.58 - 0.96 mg/dL 1.41 (H) 1.38 (H) Sodium 136 - 144 mmol/L 142 144 Potassium 3.7 - 5.1 mmol/L 4.5 4.5 Chloride 97 - 105 mmol/L 106 (H) 104 CO2 22 - 30 mmol/L 24 25 Anion Gap 9 - 18 mmol/L 12 15 ALT 7 - 38 U/L 23 18 eGFR- 44 eGFR-All Other Races . 37 eGFR >=60 mL/min/1.73m 40 (L) Component Latest Ref Rng & Units 04/14/2021 10/01/2021 Cholesterol, Total <200 mg/dL 195 216 (H) Triglyceride <150 mg/dL 231 (H) 311 (H) HDL Cholesterol >39 mg/dL 32 (L) 36 (L) LDL Cholesterol <100 mg/dL 117 (H) 118 (H) Non HDL Cholesterol <130 mg/dL 163 (H) 180 (H) Fasting Time hrs 12 12 VLDL Cholesterol <30 mg/dL 46 (H) 62 (H) TC:HDL Ratio <5.10 6.09 (H) 6.00 (H) LDL:HDL Ratio <2.54 3.66 (H) 3.28 (H) Prediabetes Current medications: diet controlled Taking medication as directed consistently? n/a Medical Issues / Complications: hypertension and hyperlipidemia Checking blood sugars at home? No. Watching diet? Yes Physical Activity: Regular Hypoglycemic spells? No Any visual disturbance? No Chest pain? No New numbness, tingling or loss of sensation? No Any recent foot problems, sores or rashes? No Any recent or sudden weight loss? No Change in urination? No. If yes: Any recent illness? No HBA1C: Hemoglobin A1C (%) Date Value 10/01/2021 5.9 04/14/2021 5.9 01/09/2019 5.7 ) CMP: Glucose 117 10/01/2021 BUN 45 10/01/2021 Creatinine 1.38 10/01/2021 Sodium 144 10/01/2021 Potassium 4.5 10/01/2021 Chloride 104 10/01/2021 CO2 25 10/01/2021 Protein, Total 7.7 10/01/2021 Albumin 4.8 10/01/2021 Calcium 10.5 10/01/2021 Alkaline Phosphatase 51 10/01/2021 Bilirubin, Total 0.4 10/01/2021 AST 20 10/01/2021 ALT 18 10/01/2021 Last 2 Encounter Wt Readings: Date: Wt: 04/09/2021 121.6 kg (268 lb) 12/05/2020 120.7 kg (266 lb) Idiopathic chronic gout of foot without tophus, unspecified laterality Current medications: allopurinol 300 mg daily Doing well, no recent occurrence. Gerd without esophagitis Current use of proton pump inhibitor Current medication: Lansoprazole 30mg AC. Current symptoms: doing well, no current sx. Last Mg level if on PPI chronically: none. Heartburn is controlled: Yes. Dysphagia: No. Bloody or black stools: No. Bowel changes: No. Renal insufficiency Stable Component Latest Ref Rng & Units 04/14/2021 10/01/2021 Protein, Total 6.3 - 8.0 g/dL 7.2 7.7 Albumin 3.9 - 4.9 g/dL 4.6 4.8 Calcium 8.5 - 10.2 mg/dL 9.8 10.5 (H) Bilirubin, Total 0.2 - 1.3 mg/dL 0.5 0.4 Alkaline Phosphatase 34 - 123 U/L 46 51 AST 13 - 35 U/L 25 20 Glucose 74 - 99 mg/dL 109 (H) 117 (H) BUN 7 - 21 mg/dL 42 (H) 45 (H) Creatinine 0.58 - 0.96 mg/dL 1.41 (H) 1.38 (H) Sodium 136 - 144 mmol/L 142 144 Potassium 3.7 - 5.1 mmol/L 4.5 4.5 Chloride 97 - 105 mmol/L 106 (H) 104 CO2 22 - 30 mmol/L 24 25 Anion Gap 9 - 18 mmol/L 12 15 ALT 7 - 38 U/L 23 18 eGFR- 44 eGFR-All Other Races . 37 eGFR >=60 mL/min/1.73m 40 (L) Overactive bladder Current medications: Oxybutynin XL 5 mg daily Doing well overall, medication does seem to help prevent incontinence. Patient is currently in a pool aerobic class and being in the water bathing as she has caused complications with bladder irritation. Patient thought she had UTI so she had leftover Macrodantin which she started on. She has used Macrodantin for postcoital prevention. Acid is all right for her to do this for current symptoms. Spinal stenosis of lumbar region with neurogenic claudication Patient states pain actually has improved somewhat, continues to have discomfort with ambulation. Exercise and stretching seem to help. HISTORIES FAMILY HISTORY Problem Relation Age of Onset Cancer Mother CERVICAL Hypertension Mother Cancer Father LUNG Hypertension Brother Diabetes Brother Diabetes Maternal Grandmother Cancer Maternal Aunt ovarian PAST MEDICAL HISTORY Diagnosis Date Benign hypertensive heart disease without heart failure Esophageal reflux Melanoma (HCC) Back. Chest. 2 different sites/ times. Excision only. Follows annually andrzej Thomas. Overactive bladder Pure hypercholesterolemia PAST SURGICAL HISTORY Procedure Laterality Date COLONOSCOP W/ OR W/O BRSH SPEC 05/01/2013 Colonoscopy COLONOSCOPY 02/11/2003 EGD W/O OR W/BRUSH/WASH 05/02/2013 EGD LAPAROSCOPIC CHOLEYCYSTECTOMY 11/23/2007 Hemorrhagic Cholecystitis LIGATE FALLOPIAN TUBE PAST SURGICAL HISTORY OF MELANOMA REMOVAL PAST SURGICAL HISTORY OF KNEE SURGERY right - arthroscopy X 2 TOTAL ABDOM HYSTERECTOMY 05/31/1991 TOTAL KNEE REPLACEMENT 06/08/10 right TOTAL KNEE REPLACEMENT 07/06/2011 left Social History Tobacco Use Smoking status: Never Smoker Smokeless tobacco: Never Used Vaping Use Vaping Use: Never used Substance Use Topics Alcohol use: No Drug use: No ACTIVE PROBLEM LIST Congenital Pes Planus Tibialis Tendinitis Mixed Hyperlipidemia Calculus of Gallbladder With Other Cholecystitis, Without Mention of Obstruction Osteoarthrosis, Unspecified Whether Generalized Or Localized, Lower Leg Essential Hypertension, Benign Pain in Limb Spinal Stenosis, Lumbar Impaired Fasting Glucose Calcaneal Spur Gout Prediabetes History of Melanoma Excision Morbid Obesity With Bmi of 40.0-44.9, Adult (Hcc) Ckd (Chronic Kidney Disease) Stage 3, Gfr 30-59 Ml/Min ([facility]) Hypertensive Kidney Disease With Chronic Kidney Disease Stage Iii ([facility]) Statin Intolerance Gerd Without Esophagitis Current Outpatient Medications Medication Sig Dispense Refill oxybutynin XL (DITROPAN XL) 5 mg 24 hr tablet TAKE 1 TABLET ONCE DAILY 90 tablet 1 allopurinol (ZYLOPRIM) 300 mg tablet Take 1 tablet by mouth once daily. 90 tablet 3 lansoprazole (PREVACID) 30 mg capsule Take 1 capsule by mouth once daily. 90 capsule 1 fenofibrate nanocrystallized (TRICOR) 145 mg tablet Take 1 tablet by mouth once daily. 90 tablet 1 lisinopril-hydroCHLOROthiazide (PRINZIDE, ZESTORETIC) 20-25 mg per tablet Take 1 tablet by mouth once daily. 90 tablet 1 nitrofurantoin monohydrate and macrocrystal (MACROBID) 100 mg capsule Take 1 capsule by mouth as needed. take one capsule after coitus as needed. 30 capsule 2 PULMICORT FLEXHALER 180 mcg/actuation aepb Azelastine 0.15 % (205.5 mcg) spry ibuprofen(ADVIL 200 MG TAB) three pills in the morning and one pill at night and then as needed 0 levocetirizine dihydrochloride(XYZAL 5 MG TAB) 0 FLONASE 50 MCG/ACTUATION NASAL SPRAY AEROSOL ONCE AT NIGHT 0 No current facility-administered medications for this visit. BP CONTROLLED (<130/80) Never done ADVANCE DIRECTIVE DISCUSSION Never done EXAM: BP 128/84 Pulse 84 Resp 16 Wt 121.1 kg (267 lb) SpO2 96% BMI 41.20 kg/m Pleasant obese adult woman in no acute distress. Alert and oriented all spheres. Normal affect and cognition. Speech normal. No deficits to learning or comprehension. Skin warm, dry, pink to lips and nailbeds. Normal turgor. Respirations regular and unlabored. HEENT: NCAT. No scleral icterus or conjunctival injection. TM's clear. Nose and oropharynx free from injection or lesion. Oral membranes moist and pink. No cervical lymph nodes. Thyroid non-tender, no masses, or enlargement. Carotids pulses 2+/4+ without bruits. Neck veins are flat Extrem: no clubbing or cyanosis. Edema: none. Extremities are warm and pink with prompt capillary refill. ASSESSMENT/PLAN: 1. Essential hypertension, benign - ICD9: 401.1, ICD10: I10 (primary diagnosis) - good control - Continue current medication(s) - Recommended regular aerobic exercise. - Recommend home blood pressure monitoring, to bring results in on next visit - Goal of BP <130/80 - LISINOPRIL 20 MG-HYDROCHLOROTHIAZIDE 25 MG TABLET - CBC 2. Mixed hyperlipidemia - ICD9: 272.2, ICD10: E78.2 - suboptimal control - Continue current medication. - Encouraged following a low fat, low cholesterol diet. - Discussed the benefits of regular aerobic exercise and weight loss. - Encouraged following a low carbohydrate, healthy oil intake diet. - FENOFIBRATE NANOCRYSTALLIZED 145 MG TABLET - LIPID PANEL BASIC 3. Statin intolerance - ICD9: 995.27, ICD10: Z78.9 4. Prediabetes - ICD9: 790.29, ICD10: R73.03 - HGB A1C - COMP METABOLIC PANEL - CBC 5. Idiopathic chronic gout of foot without tophus, unspecified laterality - ICD9: 274.02, ICD10: M1A.0790 Stable, controlled continue medication. 6. GERD without esophagitis - ICD9: 530.81, ICD10: K21.9 - Discussed lifestyle modifications including losing weight, limiting caffeine, no meals three hours before sleep and head of bed elevation - LANSOPRAZOLE 30 MG CAPSULE,DELAYED RELEASE 7. Current use of proton pump inhibitor - ICD9: V58.69, ICD10: Z79.899 - MAGNESIUM BLD 8. Renal insufficiency - ICD9: 593.9, ICD10: N28.9 Stable - COMP METABOLIC PANEL - CBC 9. Overactive bladder - ICD9: 596.51, ICD10: N32.81 Managing well on Ditropan Discussed follow-up with MANUAL QA TESTER to review risk for recurrent UTI atrophic vaginitis since she has been examined May consider Estrace cream Continue pelvic floor exercises 10. Spinal stenosis of lumbar region with neurogenic claudication - ICD9: 724.03, ICD10: M48.062 Stable working with exercise Follow-up 6 months Gm Gamboa PA-C documented in this encounter [facility] 09-28-2021 Miscellaneous Notes Telephone on 09/28/21 VITAMIN D 25 HYDROXY LIPID PANEL BASIC URIC ACID BLOOD HGB A1C COMP METABOLIC PANEL Thanks, Gm Gamboa PA-C Pt has an appointment on 10/08/21 Patient is requesting lab orders please place orders documented in this encounter [facility] documented as of this encounter (statuses as of 09/01/2021) [facility] History of Past illness Narrative* Problem Noted Date Resolved Date Routine general medical exam ination at a health care facility 03/04/2009 12/13/2011 Overview: 03/04/2009, from Dr. Woo Routine gynecological examination 03/04/2009 12/13/2011 Overview: [facility], [facility] Unspecified Hypothyroidism 03/23/200702/22 documented as of this encounter (statuses as of 09/28/2021) [facility] History of Past illness Narrative* Problem Noted Date Resolved Date Routine general medical exam ination at a health care facility 03/04/2009 12/13/2011 Overview: 03/04/2009, from Dr. Woo Routine gynecological examination 03/04/2009 12/13/2011 Overview: [facility], [facility] Unspecified Hypothyroidism 03/23/200702/22 documented as of this encounter (statuses as of 09/30/2021) [facility] History of Past illness Narrative* Problem Noted Date Resolved Date Routine general medical exam ination at a health care facility 03/04/2009 12/13/2011 Overview: 03/04/2009, from Dr. Woo Routine gynecological examination 03/04/2009 12/13/2011 Overview: [facility], [facility] Unspecified Hypothyroidism 03/23/200702/22 documented as of this encounter (statuses as of 10/08/2021) [facility] History of Past illness Narrative* Problem Noted Date Resolved Date Routine general medical exam ination at a health care facility 03/04/2009 12/13/2011 Overview: 03/04/2009, from Dr. Woo Routine gynecological examination 03/04/2009 12/13/2011 Overview: [facility], [facility] Unspecified Hypothyroidism 03/23/200702/22 documented as of this encounter (statuses as of 03/12/2022) [facility] History of Past illness Narrative* Problem Noted Date Resolved Date Routine general medical exam ination at a health care facility 03/04/2009 12/13/2011 Overview: 03/04/2009, from Dr. Woo Routine gynecological examination 03/04/2009 12/13/2011 Overview: [facility], [facility] Unspecified Hypothyroidism 03/23/200702/22 documented as of this encounter (statuses as of 04/06/2022) [facility] History of Past illness Narrative* Problem Noted Date Resolved Date Routine general medical exam ination at a health care facility 03/04/2009 12/13/2011 Overview: 03/04/2009, from Dr. Woo Routine gynecological examination 03/04/2009 12/13/2011 Overview: [facility], [facility] Unspecified Hypothyroidism 03/23/200702/22 documented as of this encounter (statuses as of 04/12/2022) [facility] History of Past illness Narrative* Problem Noted Date Resolved Date Routine general medical exam ination at a health care facility 03/04/2009 12/13/2011 Overview: 03/04/2009, from Dr. Woo Routine gynecological examination 03/04/2009 12/13/2011 Overview: [facility], [facility] Unspecified Hypothyroidism 03/23/200702/22 documented as of this encounter (statuses as of 04/23/2022) [facility] History of Past illness Narrative* Problem Noted Date Resolved Date Routine general medical exam ination at a health care facility 03/04/2009 12/13/2011 Overview: 03/04/2009, from Dr. Woo Routine gynecological examination 03/04/2009 12/13/2011 Overview: [facility] Unspecified Hypothyroidism 03/23/200702/22 documented as of this encounter (statuses as of 08/24/2022) [facility] Diagnosis Overactive bladder Hypertonicity of bladder documented in this [facility] Diagnosis Mixed hyperlipidemia- Primary Essential hypertension, benign Prediabetes Other abnormal glucose Vitamin D deficiency Unspecified vitamin D deficiency Idiopathic chronic gout of foot without tophus, unspecified laterality [facility] Diagnosis Essential hypertension, benign- Primary Mixed hyperlipidemia Statin intolerance Other drug allergy Prediabetes Other abnormal glucose Idiopathic chronic gout of foot without tophus, unspecified laterality GERD without esophagitis Esophageal reflux Current use of proton pump inhibitor Encounter for long-term (current) use of other medications Renal insufficiency Unspecified disorder of kidney and ureter Overactive bladder Hypertonicity of bladder Spinal stenosis of lumbar region with neurogenic claudication Spinal stenosis, lumbar region, with neurogenic claudication [facility] Diagnosis Overactive bladder Hypertonicity of bladder [facility] Diagnosis Essential hypertension, benign Mixed hyperlipidemia GERD without esophagitis Esophageal reflux [facility] Diagnosis Essential hypertension, benign- Primary Mixed hyperlipidemia Statin intolerance Other drug allergy Impaired fasting glucose Stage 3b chronic kidney disease (HCC) GERD without esophagitis Esophageal reflux Gout, unspecified cause, unspecified chronicity, unspecified site Morbid obesity with BMI of 40.0-44.9, adult (HCC) Morbid obesity Spinal stenosis of lumbar region with neurogenic claudication Spinal stenosis, lumbar region, with neurogenic claudication Idiopathic chronic gout of foot without tophus, unspecified laterality [facility] Diagnosis Encounter for screening mammogram for malignant neoplasm of breast- Primary Other screening mammogram documented in this encounter [facility] for referral (narrative)* Diagnostic Procedure Only (Routine) - Authorized Specialty Diagnoses / Procedures Referred By Contac t Referred To Contact [facility] Diagnoses Encounter for screening mammogram for malignant neoplasm of breast Procedures [place] SCREENING SCREENING MAMMOGRAPHY BI 2-VIEW BREAST INC CAD Lázaro Gamboa PA-C [address] [place] [address] [facility] [address] [place] [address] Referral ID Status Reason Start Date Expiration Date Visits Requested Visits Authorized [id number] Authorized Auto-Generat ed Referral 2 05/23/2023 1 1 [facility] Advance Directives No Advanced Directives Records FoundDocuments on File Type Date Recorded 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 Advance Directive(s) 02/16/2021 10:17 AM Documents on File Type Date Recorded 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 Advance Directive(s) 02/16/2021 10:17 AM Summary Purpose Family History No Family History Records Found Additional Source Comments Source Comments (unrecognize d section and content) In the event this informatio n is protected by the Federal Confidentiality of Alcohol and Drug Abuse Patient Records regulations: The Federal rules restrict any use of the information to criminally investigate or prosecute any alcohol or drug abuse patient.[facility] the event this information is protected by the Federal Confidentiality of Alcohol and Drug Abuse Patient Records regulations: The Federal rules restrict any use of the information to criminally investigate or prosecute any alcohol or drug abuse patient.[facility] the event this information is protected by the Federal Confidentiality of Alcohol and Drug Abuse Patient Records regulations: The Federal rules restrict any use of the information to criminally investigate or prosecute any alcohol or drug abuse patient.[facility] the event this information is protected by the Federal Confidentiality of Alcohol and Drug Abuse Patient Records regulations: The Federal rules restrict any use of the information to criminally investigate or prosecute any alcohol or drug abuse patient.[facility] the event this information is protected by the Federal Confidentiality of Alcohol and Drug Abuse Patient Records regulations: The Federal rules restrict any use of the information to criminally investigate or prosecute any alcohol or drug abuse patient.[facility] the event this information is protected by the Federal Confidentiality of Alcohol and Drug Abuse Patient Records regulations: The Federal rules restrict any use of the information to criminally investigate or prosecute any alcohol or drug abuse patient.[facility] the event this information is protected by the Federal Confidentiality of Alcohol and Drug Abuse Patient Records regulations: The Federal rules restrict any use of the information to criminally investigate or prosecute any alcohol or drug abuse patient.[facility] the event this information is protected by the Federal Confidentiality of Alcohol and Drug Abuse Patient Records regulations: The Federal rules restrict any use of the information to criminally investigate or prosecute any alcohol or drug abuse patient.[facility] the event this information is protected by the Federal Confidentiality of Alcohol and Drug Abuse Patient Records regulations: The Federal rules restrict any use of the information to criminally investigate or prosecute any alcohol or drug abuse patient.[facility] Reason for Visit (unrecogniz ed section and content) Reason Comments Lab Orders Reason Onset Date Comments Refill Request 03/12/2022 Reason Onset Date Comments Refill Request 04/06/2022 Reason Comments 6 Month Exam Reason Comments Orders Reason Onset Date Comments Refill Request 08/22/2022 Care Teams (unrecognized sec tion and content) 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 Relationship Specialty Start Date End Date Lázaro Gamboa PA-C [address], [place] [id number] PCP - General Family Practice 04/12/16 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 Relationship Specialty Start Date End Date Lázaro Gamboa PA-C [address], [place] [id number] PCP - General Family Practice 04/12/16 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 Relationship Specialty Start Date End Date Lázaro Gamboa PA-C [address] [place] [address] PCP - General Family Practice 04/12/16 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 Relationship Specialty Start Date End Date Lázaro Gamboa PA-C [address] [place] [address] PCP - General Family Medicine 04/12/16 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 Relationship Specialty Start Date End Date Lázaro Gamboa PA-C [address] [place] [address] PCP - General Family Medicine 04/12/16 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 Relationship Specialty Start Date End Date Lázaro Gamboa PA-C [address] [place] [address] PCP - General Family Medicine 04/12/16 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 This clinical summary was aggregated from multiple sources. Caution should be exercised in using it in the provision of clinical care. This summary normalizes information from multiple sources, and as a consequence, information in this document may materially change the coding, format and clinical context of patient data. In addition, data may be omitted in some cases. CLINICAL DECISIONS SHOULD BE BASED ON THE PRIMARY CLINICAL RECORDS. [facility], [facility]. provides no warranty or guarantee of the accuracy or completeness of information in this document.
== END | disposition home or self-care (01) ==
LOC: RAD 09:13
PROVIDERS: PCP Physician Assistant; Referring Provider Surgery; Visit Provider Surgery
DX: R19.5 Other fecal abnormalities (principal)
CPT/HCPCS: 74280